=== PATIENT | female | born 1995 | race African-American/Black ===

== ENCOUNTER 2024-03-24 13:42 | Emergency (ER) | payer OTHER ==
[~2024-03-24] VITALS: Ht 154.9 cm; Wt 65.8 kg
[2024-03-24 14:11] VITALS: BP 119/73; TEMP 97.9
[2024-03-24 15:04] VITALS: O2SAT 98
== END 2024-03-24 15:05 | disposition home or self-care (01) ==
LOC: ER 14:14
DX: H61.21 Impacted cerumen, right ear (principal)

== ENCOUNTER 2024-04-28 14:32 | Emergency (ER) | payer OTHER ==
[~2024-04-28] VITALS: Ht 152.4 cm; Wt 64.9 kg
[2024-04-28 16:53] LABS: APPEARANCE,URINE Clear (CLEAR); BILIRUBIN,URINE Negative (NEGATIVE); BLOOD, URINE Negative Ery/uL (NEGATIVE); COLOR,URINE YELLOW (YELLOW); KETONES,URINE >=160 mg/dL (NEGATIVE); LEUKOCYTE ESTERASE ,URINE Negative (NEGATIVE); NITRITE, URINE Negative (NEGATIVE); PROTEIN,URINE Trace mg/dl (NEGATIVE); UGLUCOSE Negative (NEGATIVE); UROBILINOGEN,URINE 0.2 EU/dL (0.2)
[2024-04-28 16:54] LABS: ADD URINE CULTURE NO; BACTERIA,URINE Few /HPF (None Seen); RBC,URINE 0-2 /HPF (0-2); SQUAMOUS EPITHELIAL CELL,UR Few /HPF (None Seen); WBC,URINE 0-2 /HPF (0-3)
[2024-04-28 17:04] LABS: BASOPHILS # (AUTO) 0.1 K/uL (0.0-0.2); BASOPHILS % (AUTO) 0.6 % (0.0-2.0); EOSINOPHILS # (AUTO) 0.1 K/uL (0.0-0.7); EOSINOPHILS % (AUTO) 0.8 % (0.0-6.0); HEMATOCRIT 41 % (33-45); HEMOGLOBIN 13.3 g/dL (11.5-14.8); LYMPHOCYTES # (AUTO) 2.8 K/uL (0.8-4.8); LYMPHOCYTES % (AUTO) 35.1 % (20.0-44.0); MEAN CORPUSCULAR HEMOGLOBIN 26 PG (26.0-33.0); MEAN CORPUSCULAR HGB CONC 33 g/dl (31.0-36.0); MEAN CORPUSCULAR VOLUME 81 fL (82-100); MONOCYTES # (AUTO) 0.7 K/uL (0.1-1.30); MONOCYTES % (AUTO) 9.3 % (2.0-12.0); NEUTROPHILS # (AUTO) 4.3 K/uL (1.8-8.9); NEUTROPHILS % (AUTO) 54.2 % (43.0-81.0); PLATELET COUNT (AUTO) 313 K/uL (150-450); RED BLOOD CELL COUNT(AUTO) 5.07 MIL/uL (4.0-5.2); RED CELL DISTRIBUTION WIDTH 13.6 % (11.5-15.0); WHITE BLOOD COUNT (AUTO) 7.8 K/uL (4.3-11.0)
[2024-04-28 17:14] LABS: CALCIUM, SERUM 9.4 mg/dL (8.5-10.1); CREATININE 0.6 mg/dL (0.6-1.3); POTASSIUM 3.7 mmol/L (3.5-5.1)
[2024-04-28 17:42] LABS: ALBUMIN 3.5 g/dL (3.4-5.0); BILIRUBIN,DIRECT 0.2 mg/dL (0.0-0.2); TOTAL PROTEIN, SERUM 7.4 g/dL (6.4-8.2)
[2024-04-28 18:13] VITALS: BP 146/73; TEMP 98.5; O2SAT 100
== END 2024-04-28 18:14 | disposition home or self-care (01) ==
LOC: ER 14:51
DX: O20.0 Threatened abortion (principal); Z3A.01 Less than 8 weeks gestation of pregnancy
CPT/HCPCS: 36415; 76805-TC; 80048-TC; 80076-TC; 81001; 84702-TC; 85025-TC

== ENCOUNTER 2024-08-09 08:44 | Emergency (ER) | payer OTHER ==
[~2024-08-09] VITALS: Ht 162.6 cm; Wt 63.5 kg
[2024-08-09] MEDS ORDERED: ACETAMINOPHEN ES 500 MG TABLET ONE (09:14)
[2024-08-09] MEDS: ACETAMINOPHEN ES 500 MG TABLET PO ONE (09:17)
[2024-08-09 09:41] LABS: BASOPHILS % (AUTO) 0.1 % (0.0-2.0); HEMATOCRIT 40 % (33-45); HEMOGLOBIN 13.3 g/dL (11.5-14.8); LYMPHOCYTES # (AUTO) 1.3 K/uL (0.8-4.8); LYMPHOCYTES % (AUTO) 10.2 % (20.0-44.0); MEAN CORPUSCULAR HEMOGLOBIN 27 PG (26.0-33.0); MEAN CORPUSCULAR HGB CONC 34 g/dl (31.0-36.0); MEAN CORPUSCULAR VOLUME 80 fL (82-100); MONOCYTES # (AUTO) 0.7 K/uL (0.1-1.30); MONOCYTES % (AUTO) 5.8 % (2.0-12.0); NEUTROPHILS # (AUTO) 10.3 K/uL (1.8-8.9); NEUTROPHILS % (AUTO) 83.9 % (43.0-81.0); PLATELET COUNT (AUTO) 277 K/uL (150-450); RED BLOOD CELL COUNT(AUTO) 4.95 MIL/uL (4.0-5.2); RED CELL DISTRIBUTION WIDTH 13.2 % (11.5-15.0); WHITE BLOOD COUNT (AUTO) 12.3 K/uL (4.3-11.0)
[2024-08-09 09:50] LABS: CALCIUM, SERUM 9.9 mg/dL (8.5-10.1); CREATININE 0.7 mg/dL (0.6-1.3); POTASSIUM 3.6 mmol/L (3.5-5.1)
[2024-08-09 10:19] LABS: ALBUMIN 4.2 g/dL (3.4-5.0); BILIRUBIN,DIRECT 0.2 mg/dL (0.0-0.2); TOTAL PROTEIN, SERUM 8.7 g/dL (6.4-8.2)
[2024-08-09] MEDS ORDERED: METOCLOPRAMIDE HCL 10 MG TABLET ONE (10:31)
[2024-08-09] MEDS: METOCLOPRAMIDE HCL 10 MG TABLET PO ONE (10:32)
[2024-08-09] MEDS ORDERED: ONDA4TAB5 PO (10:37)
[2024-08-09 11:14] VITALS: BP 129/81; TEMP 98.2; O2SAT 98
== END 2024-08-09 11:14 | disposition home or self-care (01) ==
LOC: ER 08:49
DX: O26.891 Other specified pregnancy related conditions, first trimester (principal); R10.11 Right upper quadrant pain; R07.9 Chest pain, unspecified; R10.2 Pelvic and perineal pain; Z3A.01 Less than 8 weeks gestation of pregnancy
CPT/HCPCS: 99284; 76705; 76805; 93005; 85025; 80048; 83690; 80076; 36415; 86850; 84702; J8597

== ENCOUNTER 2025-03-28 15:43 | Emergency (ER) | payer OTHER ==
[~2025-03-28] VITALS: Ht 154.9 cm; Wt 73.0 kg
[~2025-03-28 15:43] MED LIST: ONDA4TAB5 PO
[2025-03-28 16:01] VITALS: BP 118/74; TEMP 98.5
[2025-03-28 16:57] VITALS: O2SAT 99
== END 2025-03-28 16:58 | disposition home or self-care (01) ==
LOC: ER 15:43
DX: H61.23 Impacted cerumen, bilateral (principal)